=== PATIENT | male | born 1995 | race Caucasian/White ===

== ENCOUNTER 2020-08-12 17:35 | Emergency (ER) | payer BC, OTHER, SELFPAY ==
[2020-08-12 17:38] VITALS: BP 151/87; PULSE 79; RESP 16; TEMP 36.8; O2SAT 100
--- NOTE | 2020-08-12 17:42 | ED.MALEGU ---
HPI - Male Genitourinary General Chief complaint: Urogenital-Male Stated complaint: STD EXPOSURE Time Seen by Provider: 08/12/20 17:42 Source: patient and RN notes reviewed Mode of arrival: ambulatory Limitations: no limitations History of Present Illness HPI Narrative: 25 old male presents with concern for exposure to gonorrhea. Reports his partner tested positive for gonorrhea, tested negative for other STDs. Reports penile discharge, anal irritation and redness, urine frequency. He denies fever, abdominal pain, malaise, lesions. MD Complaint: possible STD exposure Related Data Home Medications Medication Instructions Recorded Confirmed No Home Medications 08/12/20 08/12/20 Allergies Allergy/AdvReac Type Severity Reaction Status Date / Time No Known Allergies Allergy Unverified 10/02/18 13:46 Review of Systems Review of Systems: Narrative: CONSTITUTIONAL: Denies malaise, chills, sweats, or fever. CARDIOVASCULAR: Denies chest pain, palpitations RESPIRATORY: Denies cough or dyspnea. GASTROINTESTINAL: Denies abdominal pain, nausea, vomiting, diarrhea. Reports anal redness and irritation : Reports urine frequency, penile discharge. Denies dysuria, hematuria SKIN: Denies lesions MUSCULOSKELETAL: Denies myalgia. All systems reviewed & are unremarkable except as noted in HPI and below PMFSH Comments At time of signature, agree with nursing past medical, surgical, social and family history. There is no relevant family history pertinent to the presenting complaint Exam Narrative: Exam Narrative: GENERAL: Well-appearing, well-nourished, and in no acute distress. HEAD: Normocephalic. EYES: PERRLA, conjunctivae clear. NECK: Supple. No lymphadenopathy CHEST: Clear to auscultation. No respiratory distress. HEART: Regular rate and rhythm. SKIN: Warm, dry, no rash. NEURO: Alert and oriented x3. PSYCH: Normal mood and affect Course Course Emergency Course: Patient is aware of diagnosis, understands and agrees to treatment plan. Anticipatory guidance given. Patient agrees to follow-up as directed and is aware of reasons to seek care at the emergency department. Portions of this record may have been created with voice recognition software Vital Signs Vital signs: Vital Signs Temperature 98.2 F 08/12/20 17:38 Pulse Rate 79 08/12/20 17:38 Respiratory Rate 16 08/12/20 17:38 Blood Pressure 151/87 H 08/12/20 17:38 Pulse Oximetry 100 08/12/20 17:38 Temperature 98.2 F 08/12/20 17:38 Pulse Rate 79 08/12/20 17:38 Respiratory Rate 16 08/12/20 17:38 Blood Pressure 151/87 H 08/12/20 17:38 Pulse Oximetry 100 08/12/20 17:38 Reviewed. MDM - Male Genitourinary MDM Narrative Medical decision making narrative: Exam findings show no acute concerns or changes; patient is non-toxic appearing and is in no distress. Patient is appropriate for outpatient treatment and follow-up. Differential Diagnosis Differential diagnosis: Likely urethritis and other (Sexually transmitted infection) Lab Data Attestation: I reviewed the patient's lab results. Critical Care Time Critical Care Time Critical Care Time: No Discharge Plan Discharge Clinical Impression: Exposure to sexually transmitted disease (STD) Patient Disposition: Home, Self-Care Condition: Stable Instructions: Antibiotic Form, Safe Sex Practices (ED) Additional Instructions: You have been tested and treated for potential Gonorrhea, Chlamydia today. You have also been tested for trichomoniasis, but have not been treated for trichomoniasis; if your test result was positive for trichomoniasis you will receive a phone call and an antibiotic will be called into your pharmacy. You will receive a phone call in 2-3 days with the results of today's testing. It is very important that you avoid unprotected intercourse for 7 days and until your partner(s) have been treated. Please encourage your partner(s) to seek testing and treatment
[2020-08-12] MEDS: AZITHROMYCIN 250 MG TABLET 1000 MG PO (17:54)
[2020-08-12] MEDS: cefTRIAXone 250 MG VIAL IM (17:55)
[2020-08-12] MEDS: LIDOCAINE HCL 1% LOCAL INJ 20 ML VIAL INFILTRATE (17:55)
== END 2020-08-12 18:17 | disposition home or self-care (01) ==
PROVIDERS: Emergency Provider Nurse Practitioner
DX: Z20.2 Contact with and (suspected) exposure to infections with a predominantly sexual mode of transmission (principal)
CPT/HCPCS: 81003; 87491; 87591; 87661; 96372; 99213; A9270; G0463; J0696